=== PATIENT | female | born 1975 | race Caucasian/White ===

== ENCOUNTER 2022-12-04 14:57 | Emergency (ER) | payer OTHER, SELFPAY ==
--- NOTE | ~2022-12-04 | XR_ITS ---
EXAMINATION: XR KNEE, LEFT CLINICAL INFORMATION: Trauma, pain COMPARISON: None TECHNIQUE: Four views of the left knee. FINDINGS: No fracture, dislocation, or destructive process. There is trace fluid suprapatellar bursa. Hoffa's fat pad appears normal. The deep infrapatellar recess is preserved. There are degenerative changes medial knee joint compartment with mild joint narrowing and marginal osteophytes femoral condyle and tibial plateau. No erosive change or chondrocalcinosis. XR/XR knee LT 4V IMPRESSION: 1. No fracture or dislocation. 2. Trace suprapatellar effusion. 3. Degenerative changes medial knee joint compartment.
[2022-12-04 15:24] VITALS: BP 134/78; PULSE 75; RESP 18; TEMP 36.7; O2SAT 100; BMI 37.8
--- NOTE | 2022-12-04 16:17 | ED_ITS ---
HPI - Extremity Injury (Lower) General Chief Complaint: Extremity Injury, Lower Stated Complaint: L knee inj/work related Time Seen by Provider: 12/04/22 16:17 Source: patient Mode of arrival: ambulatory Limitations: no limitations History of Present Illness HPI Narrative: 47 yo female presents to the ER for evaluation of left knee pain and swelling after she banged her knee into a cart while at work earlier today. She has been able to bear weight but with some discomfort. She feels a swollen bump on the top of her left knee. No other injuries. MD complaint: knee injury Onset (ago): hour(s) Type of Injury: blunt Place: work Severity: moderate Severity scale (1-10): 5 Relieving factors: immobilization and rest Exacerbating factors: weight bearing, movement and palpation Context: direct blow Associated symptoms: ambulatory Other symptoms: none Related Data Previous Rx's Medication Instructions Recorded ibuprofen 600 mg tablet 600 mg PO Q8H PRN pain #20 tabs 12/04/22 Allergies Allergy/AdvReac Type Severity Reaction Status Date / Time acetaminophen Allergy Unknown NAUSEA & Unverified 07/01/20 17:31 [From TYLENOL-CODEINE] VOMITING From TYLENOL-CODEINE Allergy Unknown NAUSEA & Uncoded 07/01/20 17:31 VOMITING Review of Systems Review of Systems: Yes all other systems are reviewed and are negative PMFSH Social History Social History Advance Directives: No Advance Directives Information Provided: No Physical Exam Vital Signs: Vital Signs: Last Vital Signs Temp 98.0 F 12/04/22 15:24 Pulse 75 12/04/22 15:24 Resp 18 12/04/22 15:24 BP 134/78 12/04/22 15:24 Pulse Ox 100 12/04/22 15:24 O2 Del Method 12/04/22 15:24 BMI result Body Mass Index 37.8 Appearance: Alert. Oriented X3. No acute distress. HEENT: normal inspection CVS: Normal heart rate and rhythm. Pulses normal. Respiratory: No respiratory distress. Skin: Skin warm and dry. Normal skin color. Normal skin turgor. No rashes. Extremities: left knee with mild swelling, palpable tender and swollen area over the superior aspect of the left knee. normal ROM, pain with flexion Neuro: Oriented X 3. No motor deficit. No sensory deficit. Steady gait Course Course Course Narrative: 47 yo female presents to the ER for evaluation of left knee pain and swelling after she hit it against a metal cart. Swelling noted on exam but ambulatory. XR showing trace effusion. Given VLADIMIR wrap and NSAID for pain/inflammation. Disc ussed dx and management. Stable for d/c home with supportive care. Medical Decision Making Differential Diagnosis Differential Diagnoses: The differential diagnosis associated with the presentation includes contusion, knee effusion, knee sprain, doubt ligamentous injury, fracture or dislocation Independent Interpretation I performed an independent interpretation of an: Plain X-Ray Interpretation: no appreciated fracture or dislocation Radiology Impression Discussion of test interpretation with radiology: I have reviewed the radiologist's reading. Radiologist Impression: ?XR/XR knee LT 4V IMPRESSION: 1. No fracture or dislocation. 2. Trace suprapatellar effusion. 3. Degenerative changes medial knee joint compartment. Prescription Management I considered prescription management with: Pain Medication Critical Care Time Critical Care Time Critical Care Time: No Discharge Plan Discharge Clinical Impression: Effusion of knee Patient Disposition: Home, Self-Care Instructions: Swollen Knee Joint (ED) Additional Instructions: Your x-ray today showed trace amount of fluid above the knee cap, this is from the trauma This will resolve with time, rest, compression, ice and elevation. Rest your knee and elevate your leg when possible. Recommend VLADIMIR wrap for support and compression. Use ice several times per day for the next 48 hours. Take Motrin and/or Tylenol as needed for pain. Follow up with your doctor as needed. Prescriptions: New ibuprofen 600 mg tablet 600 mg PO Q8H PRN (Reason: pain) Qty: 20 0RF Referrals: [facility] [Outside] (left knee injury) Palmira Rueda NP [Primary Care Provider] - Stand Alone Forms: Work/School Release
== END 2022-12-04 16:59 | disposition home or self-care (01) ==
LOC: HO.ED 16:28
PROVIDERS: Emergency Provider Emergency Medicine; PCP Nurse Practitioner Family
DX: S89.92XA Unspecified injury of left lower leg, initial encounter (principal); M25.562 Pain in left knee; Y29.XXXA Contact with blunt object, undetermined intent, initial encounter; Y93.9 Activity, unspecified; Y92.9 Unspecified place or not applicable; Y99.0 Civilian activity done for income or pay
CPT/HCPCS: 73564; 99282; 99283